=== PATIENT | male | born 1975 | race Caucasian/White ===

== ENCOUNTER 2019-06-12 13:56 | Inpatient (IN) | payer OTHER ==
[~2019-06-12] VITALS: Ht 167.6 cm; Wt 77.3 kg
[2019-06-12] MEDS ORDERED: HYDR-4455 PO (14:10)
[2019-06-12 14:34] LABS: BASOPHILS % (AUTO) 0.4 % (0.0-2.0); EOSINOPHILS % (AUTO) 0.8 % (1.0-6.0); HEMOGLOBIN 15.4 g/dL (13.5-17.5); LYMPHOCYTES # (AUTO) 2.1 K/uL (1.0-4.8); LYMPHOCYTES % (AUTO) 25.7 % (22.0-44.0); MEAN CORPUSCULAR HEMOGLOBIN 28.9 pg (26.0-34.0); MEAN CORPUSCULAR HGB CONC 33.5 G/dL (31.0-37.0); MEAN CORPUSCULAR VOLUME 86 fL (80-100); MONOCYTES # (AUTO) 0.6 K/uL (0.1-1.0); MONOCYTES % (AUTO) 7.2 % (2.0-9.0); NEUTROPHILS # (AUTO) 5.4 K/uL (1.8-7.7); NEUTROPHILS % (AUTO) 65.9 % (40.0-70.0); PLATELET COUNT (AUTO) 318 K/uL (150-450); RED BLOOD CELL COUNT(AUTO) 5.33 MIL/uL (4.50-5.90); RED CELL DISTRIBUTION WIDTH 13.8 % (11.5-14.5)
[2019-06-12 14:46] LABS: ANION GAP 4 mmol/L (8-16); CARBON DIOXIDE 32 mmol/L (22-29); CHLORIDE 104 mmol/L (98-107); CREATININE 0.92 mg/dL (0.60-1.30); GLOMERULAR FILTR. RATE CALC > 60 mL/min (>60); GLUCOSE,RANDOM 80 mg/dL (70-110); POTASSIUM 4.2 mmol/L (3.5-5.1); SODIUM SERUM 140 mmol/L (136-145); UREA NITROGEN, BLOOD 17 mg/dL (7-18)
[2019-06-12 14:52] LABS: ALANINE AMINOTRANSFERASE 19 U/L (12-78); ALBUMIN 3.7 g/dL (3.4-5.0); ALKALINE PHOSPHATASE 74 U/L (46-116); ASPARTATE AMINOTRANSFERASE 15 U/L (15-37); BILIRUBIN,TOTAL 0.8 mg/dL (0.1-1.0); TOTAL PROTEIN, SERUM 7.4 g/dL (6.4-8.2)
[2019-06-12 15:05] LABS: AMPHET/METH SCREEN,URINE NEGATIVE (NEGATIVE); BARBITURATE SCREEN, URINE NEGATIVE (NEGATIVE); BENZODIAZEPINES SCREEN,URINE NEGATIVE (NEGATIVE); CANNABINOID SCREEN,URINE NEGATIVE (NEGATIVE); COCAINE SCREEN,URINE NEGATIVE (NEGATIVE); METHADONE SCREEN, URINE NEGATIVE (NEGATIVE); OPIATE SCREEN,URINE NEGATIVE (NEGATIVE)
[2019-06-12 15:08] LABS: PHENCYCLIDINE SCREEN,URINE NEGATIVE (NEGATIVE)
[2019-06-12] MEDS ORDERED: CloNIDine HCL 0.1 MG TABLET PO PRN (16:15)
[2019-06-12] MEDS ORDERED: NICOTINE 14 MG/24 HOUR PATCH TD PRN (16:15)
[2019-06-12] MEDS ORDERED: ONDANSETRON HCL 4 MG TABLET PO PRN (16:15)
[2019-06-12] MEDS ORDERED: ALBUTEROL SULFATE HFA 90 MCG/PUFF 8 GM INHALER IH PRN (16:15)
[2019-06-12] MEDS ORDERED: PETROLATUM,WHITE 28 GM JELLY TP PRN (16:15)
[2019-06-12] MEDS ORDERED: MAGNESIUM HYDROXIDE SUSPENSION 30 ML UDCUP PO PRN (16:15)
[2019-06-12] MEDS ORDERED: MAG HYDROX/AL HYDROX/SIMETH ES 30 ML SUSPENSION UDCUP PO PRN (16:15)
[2019-06-12] MEDS ORDERED: METOCLOPRAMIDE HCL 5 MG/ML 2 ML VIAL IVP PRN (16:15)
[2019-06-12] MEDS ORDERED: LOPERAMIDE HCL 2 MG CAPSULE PO PRN ×2 (16:15)
[2019-06-12] MEDS ORDERED: DOCUSATE SODIUM 100 MG CAPSULE PO PRN (16:15)
[2019-06-12] MEDS ORDERED: DICYCLOMINE HCL 10 MG CAPSULE PO PRN (16:15)
[2019-06-12] MEDS ORDERED: GuaiFENesin/D-METHORPHAN [SUGAR-FREE] 200-20MG/10 ML SYRUP UDCUP PO PRN (16:15)
[2019-06-12 16:38] VITALS: BP 97/60
[2019-06-12] MEDS ORDERED: INFLUENZA VIRUS VACCINE QVS 2019-20 (3YR+)/PF 60 MCG/0.5 ML SYRINGE IM ONE (17:00)
[2019-06-12] MEDS: IBUPROFEN 400 MG TABLET PO PRN (18:08)
[2019-06-12] MEDS: LORazepam 2 MG/ML VIAL IVP PRN (18:21)
[2019-06-12 19:45] VITALS: BP 105/61
[2019-06-12] MEDS: TEMAZEPAM 15 MG CAPSULE PO SCH (20:10)
[2019-06-12] MEDS: ACETAMINOPHEN 325 MG TABLET PO PRN (20:10)
[2019-06-12 23:16] VITALS: BP 104/64
[2019-06-13 04:20] VITALS: BP 118/68
[2019-06-13 08:29] VITALS: BP 100/76
[2019-06-13] MEDS: IBUPROFEN 400 MG TABLET PO PRN ×2 (08:29→20:24)
[2019-06-13] MEDS: LORazepam 2 MG/ML VIAL IVP PRN ×2 (08:29→09:08)
[2019-06-13 11:30] VITALS: BP 144/69
[2019-06-13 15:40] VITALS: BP 109/70
[2019-06-13] MEDS ORDERED: IBUPROFEN 600 MG TABLET PO PRN (17:45)
[2019-06-13] MEDS ORDERED: MAG HYDROX/AL HYDROX/SIMETH ES 30 ML SUSPENSION UDCUP PO PRN ×2 (17:45→18:00)
[2019-06-13] MEDS ORDERED: HydrOXYzine PAMOATE 50 MG CAPSULE PO PRN (17:45)
[2019-06-13] MEDS ORDERED: CloNIDine HCL 0.1 MG TABLET PO PRN (17:45)
[2019-06-13 18:22] VITALS: BP 112/75
[2019-06-13 19:40] VITALS: BP 118/62
[2019-06-13] MEDS: HydrOXYzine PAMOATE 25 MG CAPSULE PO SCH (20:24)
[2019-06-13] MEDS: TEMAZEPAM 15 MG CAPSULE PO SCH (20:24)
[2019-06-14 05:55] VITALS: BP 103/63
[2019-06-14] MEDS: IBUPROFEN 400 MG TABLET PO PRN ×3 (06:04→19:59)
[2019-06-14 08:18] VITALS: BP 111/67
[2019-06-14] MEDS: HydrOXYzine PAMOATE 25 MG CAPSULE PO SCH ×2 (08:28→19:58)
[2019-06-14] MEDS: ACETAMINOPHEN 325 MG TABLET PO PRN (08:44)
[2019-06-14 11:45] VITALS: BP 99/62
[2019-06-14] MEDS: SERTRALINE HCL 50 MG TABLET PO SCH (13:12)
[2019-06-14 15:33] VITALS: BP 109/67
[2019-06-14 19:49] VITALS: BP 102/66
[2019-06-14] MEDS: TEMAZEPAM 15 MG CAPSULE PO SCH (19:58)
[2019-06-14 23:55] VITALS: BP 106/70
[2019-06-15 04:40] VITALS: BP 104/63
[2019-06-15 07:50] VITALS: BP 109/69
[2019-06-15] MEDS: SERTRALINE HCL 50 MG TABLET PO SCH (08:52)
[2019-06-15] MEDS: HydrOXYzine PAMOATE 25 MG CAPSULE PO SCH ×2 (08:52→21:20)
[2019-06-15] MEDS: ACETAMINOPHEN 325 MG TABLET PO PRN (08:53)
[2019-06-15 11:28] VITALS: BP 109/63
[2019-06-15 15:42] VITALS: BP 115/67
[2019-06-15] MEDS: IBUPROFEN 400 MG TABLET PO PRN (18:40)
[2019-06-15 20:10] VITALS: BP 108/59
[2019-06-15] MEDS: TEMAZEPAM 15 MG CAPSULE PO SCH (21:20)
[2019-06-15 23:45] VITALS: BP 112/62
[2019-06-16 04:53] VITALS: BP 111/59
[2019-06-16 07:48] VITALS: BP 113/71
[2019-06-16] MEDS: HydrOXYzine PAMOATE 25 MG CAPSULE PO SCH ×2 (08:08→20:14)
[2019-06-16] MEDS: SERTRALINE HCL 50 MG TABLET PO SCH (08:09)
[2019-06-16 11:41] VITALS: BP 103/58
[2019-06-16 16:02] VITALS: BP 132/66
[2019-06-16 19:53] VITALS: BP 123/59
[2019-06-16] MEDS: TEMAZEPAM 15 MG CAPSULE PO SCH (20:14)
[2019-06-16 23:35] VITALS: BP 113/65
[2019-06-17 05:30] VITALS: BP 108/65
[2019-06-17 08:00] VITALS: BP 133/79
[2019-06-17] MEDS: HydrOXYzine PAMOATE 25 MG CAPSULE PO SCH (09:28)
[2019-06-17] MEDS: SERTRALINE HCL 50 MG TABLET PO SCH (09:28)
[2019-06-17] MEDS ORDERED: IBUP-2124 PO (10:29)
[2019-06-17] MEDS ORDERED: IBUP-2070 PO (10:31)
[2019-06-17] MEDS ORDERED: HYDR-4031 PO (10:32)
[2019-06-17] MEDS ORDERED: SERT50TA12 PO (10:33)
[2019-06-17] MEDS ORDERED: TEMA15CA PO (10:34)
[2019-06-17 11:10] VITALS: BP 122/62
== END 2019-06-17 13:22 | DRG 885 ==
LOC: EMS 14:00 → 6S 15:06
PROVIDERS: ADMIT Internal Medicine; ATTEND Internal Medicine
DX: F33.2 Major depressive disorder, recurrent severe without psychotic features (principal); K64.9 Unspecified hemorrhoids; F11.10 Opioid abuse, uncomplicated; F41.9 Anxiety disorder, unspecified; F41.1 Generalized anxiety disorder; G89.29 Other chronic pain; M54.9 Dorsalgia, unspecified; Z23 Encounter for immunization; Z90.49 Acquired absence of other specified parts of digestive tract
CPT/HCPCS: 90686; G0480; J2060